=== PATIENT | female | born 1975 | race Caucasian/White ===

== ENCOUNTER → 2016-12-07 | Outpatient (CLI) | payer BC ==
--- NOTE | 2016-12-10 09:31 | MM ---
Reason for exam: screening (asymptomatic). Last mammogram was performed 1 year and 1 month ago. History: Family history of breast cancer in paternal aunt. Benign excisional biopsy of the right breast, 1998. Physical Findings: A clinical breast exam by your physician is recommended on an annual basis and results should be correlated with mammographic findings. MG Screening Mammo w CAD Bilateral CC and MLO view(s) were taken. Prior study comparison: November 08, 2015, bilateral MG screening mammo w CAD. April 28, 2013, CAD bilateral diagnostic mammogram. The breast tissue is extremely dense which could obscure a lesion on mammography. There is no discrete abnormality. ASSESSMENT: Negative, BI-RAD 1 RECOMMENDATION: Routine screening mammogram of both breasts in 1 year.
== END | disposition home or self-care (01) ==
LOC: RADMAMWWP 07:10
PROVIDERS: ATTEND Obstetrics & Gynecology
DX: Z12.31 Encounter for screening mammogram for malignant neoplasm of breast (principal); Z80.3 Family history of malignant neoplasm of breast

== ENCOUNTER → 2018-01-06 | Outpatient (CLI) | payer BC ==
--- NOTE | 2018-01-07 14:45 | MM ---
Reason for exam: screening (asymptomatic). Last mammogram was performed 1 year and 1 month ago. History: Family history of breast cancer in paternal aunt. Benign excisional biopsy of the right breast, 1998. Physical Findings: A clinical breast exam by your physician is recommended on an annual basis and results should be correlated with mammographic findings. MG 3D Screening Mammo W/Cad Bilateral CC and MLO view(s) were taken. Prior study comparison: December 07, 2016, bilateral MG screening mammo w CAD. November 08, 2015, bilateral MG screening mammo w CAD. The breast tissue is extremely dense which could obscure a lesion on mammography. There is chronic nodularity in the right axilla. There is no discrete abnormality. ASSESSMENT: Negative, BI-RAD 1 RECOMMENDATION: Routine screening mammogram of both breasts in 1 year.
== END | disposition home or self-care (01) ==
LOC: RADMAMWWP 06:47
PROVIDERS: ATTEND Obstetrics & Gynecology
DX: Z12.31 Encounter for screening mammogram for malignant neoplasm of breast (principal)
CPT/HCPCS: 77063; 77067

== ENCOUNTER → 2019-01-27 | Outpatient (CLI) | payer BC ==
--- NOTE | 2019-01-28 08:52 | MM ---
Reason for exam: screening (asymptomatic). Last mammogram was performed 1 year and 1 month ago. History: Family history of breast cancer in paternal aunt. Benign excisional biopsy of the right breast, 1998. Physical Findings: A clinical breast exam by your physician is recommended on an annual basis and results should be correlated with mammographic findings. MG 3D Screening Mammo W/Cad Bilateral CC and MLO view(s) were taken. Prior study comparison: January 06, 2018, bilateral MG 3d screening mammo w/cad. December 07, 2016, bilateral MG screening mammo w CAD. The breast tissue is heterogeneously dense. This may lower the sensitivity of mammography. There is chronic nodularity in the right breast. No significant changes when compared with prior studies. ASSESSMENT: Negative, BI-RAD 1 RECOMMENDATION: Routine screening mammogram of both breasts in 1 year.
== END | disposition home or self-care (01) ==
LOC: RADMAMWWP 06:50
PROVIDERS: ATTEND Obstetrics & Gynecology
DX: Z12.31 Encounter for screening mammogram for malignant neoplasm of breast (principal); Z80.3 Family history of malignant neoplasm of breast
CPT/HCPCS: 77063; 77067

== ENCOUNTER → 2019-11-16 | Outpatient (CLI) | payer BC ==
--- NOTE | 2019-11-20 08:18 | MM ---
Reason for exam: additional evaluation requested from prior study. Last mammogram was performed 10 months ago. History: Family history of breast cancer in paternal aunt. Benign excisional biopsy of the right breast, 1998. Taking hormonal contraceptives for 1 year. Physical Findings: Nurse did not find any significant physical abnormalities on exam. MG 3D Diag Mammo W/Cad LT CC and MLO view(s) were taken of the left breast. Prior study comparison: January 27, 2019, bilateral MG 3d screening mammo w/cad. January 06, 2018, bilateral MG 3d screening mammo w/cad. The breast tissue is heterogeneously dense. This may lower the sensitivity of mammography. Asymmetric density posterior central on the CC view does not persist on spot 3D. These results were verbally communicated with the patient and result sheet given to the patient on 11/16/19. ASSESSMENT: Incomplete: need additional imaging evaluation, BI-RAD 0 RECOMMENDATION: Ultrasound of the left breast.
--- NOTE | 2019-11-20 08:21 | USB ---
Reason for exam: additional evaluation requested from abnormal screening. History: Family history of breast cancer in paternal aunt. Benign excisional biopsy of the right breast, 1998. Taking hormonal contraceptives for 1 year. US Breast LT Technologist: Edie Gil Left complete breast ultrasound includes all four quadrants, the retroareolar region and axilla. Finding demonstrates a 0.7 x 0.5 x 0.3cm cystic cluster at 1 o'clock, a 0.8 x 0.7 x 0.6cm hypoechoic lesion at 2 o'clock for which a biopsy is recommended and a 0.5 x 0.6 x 0.3cm cystic lesion at 3 o'clock. Ducts at posterior nipple. These results were verbally communicated with the patient and result sheet given to the patient on 11/16/19. ASSESSMENT: Suspicious, BI-RAD 4 RECOMMENDATION: Ultrasound core biopsy of the left breast. Manage on a clinical basis with regard to left nipple pain. (2 o'clock biopsy site) Called Dr. Ocasio's office with mammographic findings and has scheduled an appointment for the patient for 01/06/20 at 4:[address] Preston. Biopsy scheduled for 12/10/18 at 2:00. PRELIMINARY REPORT CALLED AND FAXED TO DR. PRESTON ON 11/16/19.
== END | disposition home or self-care (01) ==
LOC: RADMAMWWP 13:31
PROVIDERS: ATTEND Obstetrics & Gynecology
DX: R92.8 Other abnormal and inconclusive findings on diagnostic imaging of breast (principal); N64.52 Nipple discharge; N64.4 Mastodynia
CPT/HCPCS: 77061; 77065

== ENCOUNTER → 2019-12-10 | Day surgery (SDC) | payer BC ==
[2019-12-10 13:33] VITALS: RESP 16
[2019-12-10 14:21] VITALS: BP 144/75; PULSE 72; TEMP 98
--- NOTE | 2019-12-10 14:55 | USB ---
EXAMINATION TYPE: US biopsy breast VAD LT, MG diagnostic mammo LT wo CAD DATE OF EXAM: 12/10/2019 CLINICAL HISTORY: R92.8 Abnormal Mammogram. TECHNIQUE: Ultrasound guided core biopsy of left breast. COMPARISON: Left breast ultrasound dated 11/16/2019 FINDINGS: The procedure of ultrasound guided core biopsy was explained to the patient. Benefits, alternatives, and risks were discussed. An informed consent was then obtained. Preprocedural timeout was performed. The patient was placed in supine positioning for imaging and for the procedure. The overlying skin was prepped and draped in usual sterile fashion. 12 cc of 1% lidocaine was used as anesthetic into the skin and subcutaneous tissue up to the 0.8 cm mass at the 2:00 position in the left breast. Under ultrasound guidance, a 12-gauge vacuum assisted biopsy gun device was used to obtain 3 core samples. Following this, a ribbon-shaped biopsy marker was left at the site of biopsy. There was collapse of the mass on biopsy compatible with a complicated cyst. Postprocedure mammogram demonstrates appropriate biopsy marker placement. The patient tolerated the procedure well without any immediate complication. The patient was kept in the radiology department for short stay after the procedure and then discharged home in stable condition. IMPRESSION: Successful, uncomplicated ultrasound guided core biopsy of a 0.8 cm cystic mass at the 2:00 position in the left breast, full pathology results to follow. Pathology Results: Benign LEFT BREAST AT 2:00 POSITION, BIOPSIES: Sclerosing adenosis and a capillary hemangioma in a background of fibrocystic spectrum disease. Focal intraductal mineralizations are identified. Recommendation Follow up ultrasound of the left breast in 6 months. SONALI
== END ==
LOC: RADUSWWP 12:59
PROVIDERS: ATTEND Surgery
DX: N60.22 Fibroadenosis of left breast (principal); N60.12 Diffuse cystic mastopathy of left breast
CPT/HCPCS: 88305; 77065; 19083; A4648; J2001

== ENCOUNTER → 2020-02-10 | Outpatient (CLI) | payer BC ==
--- NOTE | 2020-02-10 09:51 | MM ---
Reason for exam: screening (asymptomatic). Last mammogram was performed 2 months ago. History: Family history of breast cancer in paternal aunt. Benign US biopsy breast VAD LT of the left breast, December 10, 2019. Benign excisional biopsy of the right breast, 1998. Took hormonal contraceptives for 5 years beginning at age 20. Physical Findings: A clinical breast exam by your physician is recommended on an annual basis and results should be correlated with mammographic findings. MG 3D Screening Mammo W/Cad Bilateral CC and MLO view(s) were taken. Prior study comparison: December 10, 2019, left breast MG diagnostic mammo LT wo CAD. November 16, 2019, left breast MG 3d diag mammo w/cad LT. The breast tissue is extremely dense which could obscure a lesion on mammography. No suspicious abnormality. Left biopsy marker noted. No significant changes when compared with prior studies. ASSESSMENT: Negative, BI-RAD 1 RECOMMENDATION: Routine screening mammogram of both breasts in 1 year.
== END | disposition home or self-care (01) ==
LOC: RADMAMWWP 07:17
PROVIDERS: ATTEND Surgery
DX: Z12.31 Encounter for screening mammogram for malignant neoplasm of breast (principal)
CPT/HCPCS: 77063; 77067

== ENCOUNTER → 2020-06-13 | Outpatient (CLI) | payer BC ==
--- NOTE | 2020-06-13 09:00 | USB ---
Reason for exam: additional evaluation requested from abnormal screening. History: Family history of breast cancer in paternal aunt. Benign US biopsy breast VAD LT of the left breast, December 10, 2019. Benign excisional biopsy of the right breast, 1998. Took hormonal contraceptives for 5 years beginning at age 20. Physical Findings: Nurse did not find any significant physical abnormalities on exam. US Breast Limited LT Left limited breast ultrasound including focal area of concern, retroareolar and axilla demonstrates a 0.4 x 0.3 x 0.3cm oval, cystic lesion at 12 o'clock, a 0.5 x 0.5 x 0.2cm oval, cystic lesion at 1 o'clock, a 0.4 x 0.3 x 0.3cm oval, cystic lesion at 2 o'clock at prior biopsy site, a 0.5 x 0.6 x 0.4cm oval, cystic lesion at 3 o'clock and a 1.6 x 1.6 x 1.4cm lymph node at the axilla. These results were verbally communicated with the patient and result sheet given to the patient on 06/13/20. ASSESSMENT: Benign, BI-RAD 2 RECOMMENDATION: Return to routine screening mammogram schedule for both breasts.
== END ==
LOC: RADUSWWP 07:14
PROVIDERS: ATTEND Surgery
DX: R92.8 Other abnormal and inconclusive findings on diagnostic imaging of breast (principal)

== ENCOUNTER → 2021-03-17 | Outpatient (CLI) | payer BC ==
--- NOTE | 2021-03-20 12:02 | MM ---
Reason for exam: screening (asymptomatic). Last mammogram was performed 1 year and 1 month ago. History: Family history of breast cancer in paternal aunt. Benign US biopsy breast VAD LT of the left breast, December 10, 2019. Benign excisional biopsy of the right breast, 1998. Taking hormonal contraceptives for 5 years beginning at age 20. Physical Findings: A clinical breast exam by your physician is recommended on an annual basis and results should be correlated with mammographic findings. MG 3D Screening Mammo W/Cad Bilateral CC and MLO view(s) were taken. Prior study comparison: February 10, 2020, bilateral MG 3d screening mammo w/cad. December 10, 2019, left breast MG diagnostic mammo LT wo CAD. The breast tissue is heterogeneously dense. This may lower the sensitivity of mammography. Previous mammotome biopsy in the left breast. There is no discrete abnormality. ASSESSMENT: Benign, BI-RAD 2 RECOMMENDATION: Routine screening mammogram of both breasts in 1 year.
== END | disposition home or self-care (01) ==
LOC: RADMAMWWP 07:04
PROVIDERS: ATTEND Obstetrics & Gynecology
DX: Z12.31 Encounter for screening mammogram for malignant neoplasm of breast (principal); Z80.3 Family history of malignant neoplasm of breast
CPT/HCPCS: 77063; 77067

== ENCOUNTER → 2022-03-23 | Outpatient (CLI) | payer BC ==
--- NOTE | 2022-03-26 12:05 | MM ---
Reason for exam: screening (asymptomatic). Last mammogram was performed 1 year ago. History: Family history of breast cancer in paternal aunt. Benign US biopsy breast VAD LT of the left breast, December 10, 2019. Benign excisional biopsy of the right breast, 1998. Taking hormonal contraceptives for 5 years beginning at age 20. Physical Findings: A clinical breast exam by your physician is recommended on an annual basis and results should be correlated with mammographic findings. MG 3D Screening Mammo W/Cad Bilateral CC and MLO view(s) were taken. XCCL view(s) were taken of the right breast. Prior study comparison: March 17, 2021, bilateral MG 3d screening mammo w/cad. February 10, 2020, bilateral MG 3d screening mammo w/cad. November 16, 2019, left breast MG 3d diag mammo w/cad LT. January 27, 2019, bilateral MG 3d screening mammo w/cad. January 06, 2018, bilateral MG 3d screening mammo w/cad. The breast tissue is heterogeneously dense. This may lower the sensitivity of mammography. No significant changes when compared with prior studies. ASSESSMENT: Benign, BI-RAD 2 RECOMMENDATION: Routine screening mammogram of both breasts in 1 year.
== END | disposition home or self-care (01) ==
LOC: RADMAMWWP 07:44
PROVIDERS: ATTEND Obstetrics & Gynecology
DX: Z08 Encounter for follow-up examination after completed treatment for malignant neoplasm (principal); Z80.3 Family history of malignant neoplasm of breast
CPT/HCPCS: 77063; 77067

== ENCOUNTER → 2023-04-16 | Outpatient (CLI) | payer BC ==
--- NOTE | 2023-04-17 08:39 | MM ---
Reason for Exam: Screening (asymptomatic). Last mammogram was performed 1 year(s) and 1 month(s) ago. Patient History: Menarche at age 13. First Full-Term at age 28. Premenopausal. Currently using Hormonal Contraceptives, beginning at age 20 for 5 years. 1998, Benign Excisional Biopsy on the right side. 12/10/2019, Benign Core Biopsy on the left side. Paternal aunt had breast cancer. Risk Values: Rufina 5 year model risk: 2.1%. NCI Lifetime model risk: 15.6%. Prior Study Comparison: 02/10/2020 Bilateral Screening Mammogram, [facility]. 03/17/2021 Bilateral Screening Mammogram, [facility]. 03/23/2022 Bilateral Screening Mammogram, [facility]. Tissue Density: The breast tissue is heterogeneously dense. This may lower the sensitivity of mammography. Findings: Analyzed By CAD. Left breast biopsy clip. There is no suspicious group of microcalcifications or new suspicious mass in either breast. Overall Assessment: Benign, BI-RAD 2 Management: Screening Mammogram of both breasts in [address] [facility] will attempt to contact patient to return for supplemental views and ultrasound if indicated. Patient should continue monthly self-breast exams. A clinical breast exam by your physician is recommended on an annual basis. This exam should not preclude additional follow-up of suspicious palpable abnormalities. Note on Rufina scores and lifetime risk: 1. A Rufina score greater than 3% is considered moderate risk. If this is the case, consider specialist referral to assess eligibility for a risk reducing agent. 2. If overall lifetime risk for the development of breast cancer is 20% or higher, the patient may qualify for future screening with alternating mammogram and breast MRI. Electronically signed and approved by: Jed Brady DO
== END | disposition home or self-care (01) ==
LOC: RADMAMWWP 07:42
PROVIDERS: ATTEND Obstetrics & Gynecology
DX: Z12.31 Encounter for screening mammogram for malignant neoplasm of breast (principal)
CPT/HCPCS: 77063; 77067

== ENCOUNTER → 2024-05-05 | Outpatient (CLI) | payer BC ==
--- NOTE | 2024-05-06 13:09 | MM ---
Reason for Exam: Screening (asymptomatic). Last mammogram was performed 1 year(s) and 1 month(s) ago. Patient History: Menarche at age 13. First Full-Term at age 28. Premenopausal. Currently using Hormonal Contraceptives, beginning at age 20 for 5 years. 1998, Benign Excisional Biopsy on the right side. 12/10/2019, Benign Core Biopsy on the left side. Paternal aunt had breast cancer. Risk Values: Rufina 5 year model risk: 1.9%. NCI Lifetime model risk: 15.3%. Prior Study Comparison: 03/17/2021 Bilateral Screening Mammogram, [facility]. 03/23/2022 Bilateral Screening Mammogram, [facility]. 04/16/2023 Bilateral MG 3D screening mammo w/cad, [facility]. Tissue Density: The breasts are heterogeneously dense, which may obscure small masses. Findings: Analyzed By CAD. There is no suspicious group of microcalcifications or new suspicious mass in either breast. Overall Assessment: Benign, BI-RAD 2 Management: Screening Mammogram of both breasts in 1 year. . Patient should continue monthly self-breast exams. A clinical breast exam by your physician is recommended on an annual basis. This exam should not preclude additional follow-up of suspicious palpable abnormalities. Note on Rufina scores and lifetime risk: 1. A Rufina score greater than 3% is considered moderate risk. If this is the case, consider specialist referral to assess eligibility for a risk reducing agent. 2. If overall lifetime risk for the development of breast cancer is 20% or higher, the patient may qualify for future screening with alternating mammogram and breast MRI. Electronically signed and approved by: Rogelio Acosta M.D. Radiologis
== END | disposition home or self-care (01) ==
LOC: RADMAMWWP 09:01
PROVIDERS: ATTEND Obstetrics & Gynecology
DX: Z12.31 Encounter for screening mammogram for malignant neoplasm of breast (principal); Z80.3 Family history of malignant neoplasm of breast
CPT/HCPCS: 77063; 77067

== ENCOUNTER 2024-07-08 09:00 | Day surgery (SDC) | payer BC ==
[2024-07-08] MEDS ORDERED: LACTATED RINGERS 1,000 ML BAG ONE (10:14)
[2024-07-08] MEDS ORDERED: PROPOFOL 10 MG/ML 20 ML VIAL IV ONE (10:52)
--- NOTE | 2024-07-17 15:53 | OP ---
OPERATIVE REPORT DATE OF SERVICE : 07/08/2024 REQUESTING PHYSICIAN: Smith Guevara MD BRIEF HISTORY: The patient is a 49-year-old pleasant white female scheduled for elective colonoscopy as a part of screening for colorectal neoplasia. PROCEDURE PERFORMED: Colonoscopy with snare polypectomy. PREOPERATIVE DIAGNOSIS: Screening for colon cancer. ANESTHESIA: IV sedation per Anesthesia. DESCRIPTION OF PROCEDURE: After informed consent was obtained from the patient, she was brought into the endoscopy unit. IV conscious sedation was administered by Anesthesia under continuous monitoring. Initial distal rectum examination was normal. The Olympus CF-190 video colonoscopy was then inserted into the rectum, gradually advanced into the cecum. Careful examination was performed as the scope was gradually being withdrawn. The ileocecal valve and appendiceal orifice were visualized and appeared normal. The prep was excellent. Mucosa of the cecum, ascending colon appeared normal. In the transverse colon, there was a 5 mm polyp that was removed by cold snare polypectomy. The rest of the transverse colon, descending colon, sigmoid colon and rectum appeared normal. In the rectum, retroflexion was performed. No lesions were noted and the patient tolerated the procedure well. IMPRESSION: 1. 5 mm transverse colon polyp, status post cold snare polypectomy. 2. Rest of the colon appeared normal. RECOMMENDATIONS: Findings of this examination were discussed with the patient as well as her family. She was advised to follow up with the biopsy results. If the biopsy reveals adenoma, should have a repeat colonoscopy in 5 years. MMODL / IJN: [id number] /
== END 2024-07-08 12:14 ==
LOC: ORWHC2ENDO 09:00
PROVIDERS: ATTEND Internal Medicine Gastroenterology
DX: Z12.11 Encounter for screening for malignant neoplasm of colon (principal); D12.3 Benign neoplasm of transverse colon; Z98.890 Other specified postprocedural states
CPT/HCPCS: 45385; 81025; 88305

== ENCOUNTER → 2025-06-09 | Outpatient (CLI) | payer BC ==
--- NOTE | 2025-06-09 14:00 | MM ---
Reason for Exam: Screening (asymptomatic). Last mammogram was performed 1 year(s) and 1 month(s) ago. Patient History: Menarche at age 13. First Full-Term at age 28. Premenopausal. Currently using Hormonal Contraceptives, beginning at age 20 for 5 years. 1998, Benign Excisional Biopsy on the right side. 12/10/2019, Benign Core Biopsy on the left side. Paternal aunt had breast cancer. Risk Values: Rufina 5 year model risk: 1.6%. NCI Lifetime model risk: 14.5%. Prior Study Comparison: 03/23/2022 Bilateral Screening Mammogram, [facility]. 04/16/2023 Bilateral MG 3D screening mammo w/cad, [facility]. 05/05/2024 Bilateral MG 3D screening mammo w/cad, [facility]. Tissue Density: The breasts are heterogeneously dense, which may obscure small masses. Findings: Analyzed By CAD. There is no suspicious group of microcalcifications or new suspicious mass in either breast. Overall Assessment: Benign, BI-RAD 2 Management: Screening Mammogram of both breasts in 1 year. . Patient should continue monthly self-breast exams. A clinical breast exam by your physician is recommended on an annual basis. This exam should not preclude additional follow-up of suspicious palpable abnormalities. Note on Rufina scores and lifetime risk: 1. A Rufina score greater than 3% is considered moderate risk. If this is the case, consider specialist referral to assess eligibility for a risk reducing agent. 2. If overall lifetime risk for the development of breast cancer is 20% or higher, the patient may qualify for future screening with alternating mammogram and breast MRI. [facility], , 06/09/2025 12:55 PM. Electronically signed and approved by: Rogelio Acosta M.D. Radiologis
== END | disposition home or self-care (01) ==
LOC: RADMAMWWP 12:46
PROVIDERS: ATTEND Obstetrics & Gynecology
DX: Z12.31 Encounter for screening mammogram for malignant neoplasm of breast (principal); R92.333 Mammographic heterogeneous density, bilateral breasts; Z80.3 Family history of malignant neoplasm of breast; Z79.3 Long term (current) use of hormonal contraceptives
CPT/HCPCS: 77063; 77067